=== PATIENT | female | born 1990 | race Caucasian/White ===

== ENCOUNTER 2016-06-09 05:34 | Inpatient (IN) | payer MEDICAID ==
[~2016-06-09] VITALS: Ht 162.6 cm; Wt 81.4 kg
[2016-06-09] VITALS (19 sets, daily range): BP systolic 100–126; BP diastolic 55–75; PULSE 67–108; TEMP 97–98.6
[~2016-06-09 05:34] MED LIST: BIRTH CONTROL; BIRTH CONTROL PILLS; CLINDAMYCIN HC300 MG PO; FLAGYL 250250 MG/TAB PO; LORTAB 5/500 501 TAB PO; MACROBID100 MG PO; MAGIC MOUTH PO; MOTRIN 600600 MG/TAB PO; NORCO 325 MG-51 TAB PO; PERCOCET 325 MG1 TA2 PO; PHENERGAN 25 TA25 MG PO; PHENERGAN25 MG RC; PRENATAL VITAMI1 TA5 PO; PRENATAL1 TA1 PO; PRENATAL1 TA3 PO; SENOKOT S 50 MG1 TAB PO; VALTREX PO; [UNRECOGNIZED DRUG - REMARK]
[2016-06-09 06:21] LABS: BASO % 0.5 % (0.0-2.0); EOS # 0.2 (0.0-0.7); GRAN # 4.8 (1.4-6.5); GRAN % 58.9 % (42.2-75.2); LYMPH # 2.3 (1.2-3.4); LYMPH % 28.1 % (20.0-51.0); MEAN CELL VOLUME 87 fl (80.0-100.0); MEAN CORPUSCULAR HGB CONC 32 g/dl (33.0-37.0); MEAN PLATELET VOLUME 10.9 fl (7.4-10.4); MONO # 0.8 (0.1-0.6); MONO % 9.9 % (1.7-9.3); PLATELET COUNT 153 K/mm3 (130-400); RED BLOOD COUNT 3.73 M/mm3 (4.10-5.30); REDCELL DISTRIBUTION WIDTH-CV 14.8 % (11.5-14.5); WHITE BLOOD COUNT 8.1 K/mm3 (4.8-10.8)
[2016-06-09 06:23] LABS: HEMATOCRIT 32.5 % (37.0-47.0); HEMOGLOBIN 10.4 g/dl (12.5-16.0); MEAN CORPUSCULAR HEMOGLOBIN 28 pg (27.0-31.0)
[2016-06-10 08:15] VITALS: BP 120/62; PULSE 84; TEMP 98.3
[2016-06-10] MEDS ORDERED: MOTRIN 600600 MG/TAB PO (09:06)
[2016-06-10] MEDS ORDERED: PERCOCET 325 MG1 TA2 PO (09:07)
[2016-06-10 15:02] VITALS: BP 117/64; PULSE 87; TEMP 97.6
[2016-06-10 21:00] VITALS: BP 114/66; PULSE 70; TEMP 98.2
[2016-06-11 07:50] VITALS: BP 112/68; PULSE 89; TEMP 98.1
[2016-06-11] MEDS ORDERED: PHENERGAN W/CO120 M1 PO (09:12)
[2016-06-11 16:07] VITALS: BP 120/64; PULSE 78; TEMP 98.2
== END 2016-06-11 18:30 | disposition home or self-care (01) | DRG 766 ==
LOC: OB 05:34 → LDR 08:35 → OB 06-11 18:30
PROVIDERS: Obstetrics & Gynecology
PROC: 10D00Z1 Extraction of Products of Conception, Low, Open Approach (ICD-10-PCS; principal; 2016-06-09)
DX: O34.211 Maternal care for low transverse scar from previous cesarean delivery (principal); N85.8 Other specified noninflammatory disorders of uterus; O09.43 Supervision of pregnancy with grand multiparity, third trimester; O69.81X0 Labor and delivery complicated by cord around neck, without compression, not applicable or unspecified; Z3A.39 39 weeks gestation of pregnancy; Z37.0 Single live birth; Z23 Encounter for immunization
CPT/HCPCS: J0690; J1885; J2270; J2370; J2405; J2550; J2590; J7120